=== PATIENT | male | born 1970 | race Caucasian/White ===

== ENCOUNTER 2021-08-16 19:01 | Emergency (ER) | payer MEDICAID, OTHER ==
[~2021-08-16] VITALS: Ht 172.7 cm; Wt 87.5 kg
[2021-08-16] MEDS ORDERED: LABETALOL HCL 5 MG/ML 4ML SYRINGE IV ONE (19:30)
[2021-08-16 23:10] VITALS: BP 146/98
== END 2021-08-16 23:30 | disposition home or self-care (01) ==
LOC: EDBD 19:01 → ER 19:01
DX: R04.0 Epistaxis (principal); I10 Essential (primary) hypertension
CPT/HCPCS: 96374; 99283; J3490